=== PATIENT | male | born 1960 | race Caucasian/White ===

== ENCOUNTER → 2018-05-24 | Outpatient (CLI) | payer OTHER ==
[~2018-05-24] MED LIST: AMOXICILLIN 50500 M1 PO; AVELOX 400 MG400 MG PO; CEFTIN 250 MG250 MG PO; CIPRO500 M1 PO; CIPRO500 MG PO; DOXYCYCLINE 10100 MG PO; FLAGYL500 M1 PO; FLAGYL500 MG PO; HYDROCODONE-AP1 EAC6 PO; KEPPRA 500 MG500 M1 PO; LEVAQUIN 250 M250 MG PO; LISINOPRIL5 MG PO; OMEPRAZOLE20 MG PO; ROBITUSSIN15 MG/5 ML PO; VITAMIN D1000 UNI1 PO; ZOFRAN ODT4 MG PO
== END ==
LOC: M.MRI 16:21
DX: S83.231A Complex tear of medial meniscus, current injury, right knee, initial encounter (principal); M22.41 Chondromalacia patellae, right knee; X58.XXXA Exposure to other specified factors, initial encounter; Y93.89 Activity, other specified; Y92.89 Other specified places as the place of occurrence of the external cause; Y99.8 Other external cause status

== ENCOUNTER → 2018-06-22 | Day surgery (SDC) | payer OTHER ==
[~2018-06-22] MED LIST changes: +NORCO 5-325 TA1 EACH PO; +PROTONIX40 M1 PO
--- NOTE | ~2018-06-22 | OP ---
[address] [address] OPERATIVE REPORT Name: MAIDA FARIA Room: [facility]#: [id number] Admission: 06/22/18 Attend Phys: Javier Gibson DO Discharge: Date of : 64 Report #: [id number] THIS REPORT FOR: //name// CC: Javier Dozier DICTATED BY: Joe Emmanuel DO DATE OF SERVICE: 06/22/2018 PREOPERATIVE DIAGNOSIS: Right knee medial meniscus tear. POSTOPERATIVE DIAGNOSES: 1. Right knee medial meniscus tear. 2. Grade 3 chondromalacia medial femoral condyle. 3. Medial plica. PROCEDURE: Right knee arthroscopy with partial medial meniscectomy, chondroplasty medial compartment and excision of medial plica. SURGEON: Javier Gibson DO. ASSISTANTS: 1. Joe Emmanuel DO 2. Shivam Carbajal DO ANESTHESIA: General. ANTIBIOTICS: 1 gram Ancef IV preoperatively. ESTIMATED BLOOD LOSS: 5 mL. COMPLICATIONS: None. SPECIMENS: None. CONDITION: The patient is stable to PACU. INDICATIONS FOR PROCEDURE: This is a pleasant 58-year-old male who has been seen and examined in the outpatient orthopedic clinic. He has been complaining of right knee pain for quite some time now. He has been treated conservatively with activity modification as well as intra-articular steroid injections. Despite these treatments, he continues to have right knee pain. He did undergo an MRI, which demonstrated findings consistent with a tear of the medial meniscus of the right knee. Right knee arthroscopy was recommended for the patient and they wished to proceed with this. [address] [address] OPERATIVE REPORT Name: MAIDA FARIA Room: [facility]#: [id number] Admission: 06/22/18 Attend Phys: Javier Gibson DO Discharge: Date of : 64 Report #: [id number] DESCRIPTION OF PROCEDURE: The patient was seen and examined in the preoperative holding area. The correct operative extremity was marked by the operating surgeon. Written consent was contained for the procedure. The patient was then transferred to the operating room and placed supine on the operating room table. He was given the benefit of general anesthesia. The right lower extremity was placed in the arthroscopic leg calle. The left lower extremity was well padded. The right lower extremity was then prepped and draped in the usual sterile fashion. Timeout was performed to verify the correct patient, procedure and operative extremity and all were in agreement. The procedure began by using a 15 blade scalpel to establish the standard anterolateral arthroscopic portal. Diagnostic arthroscopy was then performed. There was noted to be grade 2 and 3 chondromalacia of the patellofemoral compartment. There was also noted to be a medial plica band impinging on the medial femoral condyle. Medial compartment demonstrated grade 3 chondromalacia as well as a complex tear of the medial meniscus involving the root and extending into the body of the medial meniscus. The notch was found to be without pathology. The lateral compartment was also found to be without any pathology. Next, using arthroscopic guidance, the medial portal was established. Attention was turned to the medial meniscus where partial medial meniscectomy was performed using combination of arthroscopic biters and arthroscopic beth. This was confirmed to be debrided back to stable edges with probing. The attention was then turned to the medial plica which was excised using the arthroscopic shaver. The knee was then thoroughly irrigated and drained. This was injected with 20 mL of 0.25% Marcaine plain as well as 40 mg of Kenalog. The patient tolerated the procedure well. The incision was then closed with 3-0 nylon sutures in a simple interrupted fashion. A sterile dressing of Xeroform, 4 x 4's, Webril and Eliezer wrap was applied to the right lower extremity. The patient was awakened from anesthesia and transferred to the PACU in stable condition. He tolerated the procedure well. There were no complications. By: [id number] DO Arthur /nt
[2018-06-22 10:31] LABS: HEMATOCRIT 49.7 % (42.0-52.0); HEMOGLOBIN 16.8 gm/dL (14.0-18.0); MCH 27.8 pg (26.0-34.0); MCHC 33.8 g/dL (28.0-37.0); MCV 82.1 fL (80.0-100.0); MPV 7.1 fl. (7.2-11.1); RBC 6.05 mil/uL (4.50-6.00); RDW-CV 13.1 % (10.5-14.5); WBC 10.4 thou/uL (4.0-11.0)
[2018-06-22 10:36] LABS: CREATININE 1.2 mg/dL (0.6-1.3); POTASSIUM 4.1 mmol/L (3.5-5.1)
[2018-06-22 10:41] LABS: ALBUMIN 3.7 g/dL (3.4-5.0); TOTAL BILIRUBIN 0.6 mg/dL (<0.1-1.0); TOTAL PROTEIN 7.7 g/dL (6.4-8.2)
--- NOTE | 2018-06-22 16:51 | EKG ---
[place] [address] ELECTROCARDIOGRAM REPORT Name: MAIDA FARIA Room: [facility]#: [id number] Admission: 06/22/18 Attend Phys: Javier Gibson DO Discharge: Date of : 64 Report #: [id number] THIS REPORT FOR: //name// [facility] Test Date: 2018-06-22 Test Time: 10:24:03 Pat Name: MAIDA FARIA Department: Room: Gender: M Police Detective: : 1960 Requested By: Javier Gibson Order Number: [id number] Reading MD: Sagar Galan Measurements Intervals [place] Rate: 65 P: 43 NE: 155 QRS: 26 QRSD: 105 T: 51 QT: 413 QTc: 430 Interpretive Statements Sinus rhythm Compared to ECG 09/19/2016 07:39:59 No significant changes Electronically Signed On 06-22-2018 16:51:30 [employer] by Sagar Galan [email or web address] <ELECTRONICALLY SIGNED> By: Sagar Galan MD, [facility] 06/22/18 1651 1024 1024 Sagar Galan MD, FACC /EPI
== END | disposition home or self-care (01) ==
LOC: M.SUR 10:02
PROVIDERS: Orthopaedic Surgery
DX: S83.231A Complex tear of medial meniscus, current injury, right knee, initial encounter (principal); M94.261 Chondromalacia, right knee; M67.51 Plica syndrome, right knee; Z98.890 Other specified postprocedural states; Z91.041 Radiographic dye allergy status; Z79.899 Other long term (current) drug therapy; X58.XXXA Exposure to other specified factors, initial encounter; Y93.89 Activity, other specified; Y92.89 Other specified places as the place of occurrence of the external cause; Y99.8 Other external cause status

== ENCOUNTER → 2018-08-15 | Outpatient (CLI) | payer OTHER ==
[2018-08-15 16:13] LABS: BF RBC <1000 /mm3
[2018-08-15 16:47] LABS: TOTAL CELL COUNT 728 /mm3
[2018-08-15 17:10] LABS: TOTAL VOLUME 35 ml
[2018-08-15 17:11] LABS: CLARITY SLIGHTLY HAZY
[2018-08-15 18:07] LABS: BF LYMPHOCYTES 45 %; BF MONOCYTES 50 %; BF POLYS 5 %; BF TISSUE 14 /100 WBC; SOURCE SYNOVIAL FLUID
[2018-08-16 11:09] LABS: BODY FLUID PROTEIN 3.8 g/dL (())
[2018-08-17 10:04] LABS: SOURCE SYNOVIAL
== END ==
LOC: M.ULTRA 15:40
PROVIDERS: Orthopaedic Surgery
DX: M25.461 Effusion, right knee (principal)

== ENCOUNTER 2019-03-04 06:49 | Emergency (ER) | payer OTHER ==
[~2019-03-04] VITALS: Ht 188 cm; Wt 128.8 kg
[2019-03-04] MEDS ORDERED: CYCLOBENZAPRINE5 MG PO (07:10)
[2019-03-04] MEDS ORDERED: LIPITOR 20 MG T20 M1 PO (07:10)
[2019-03-04 07:44] LABS: URINE BILIRUBIN NEGATIVE (Negative); URINE BLOOD TRACE (Negative); URINE CLARITY CLEAR; URINE COLOR YELLOW; URINE GLUCOSE-RANDOM NEGATIVE (Negative); URINE KETONES NEGATIVE (Negative); URINE LEUKOCYTES-REFLEX NEGATIVE (Negative); URINE NITRITE-REFLEX NEGATIVE (Negative); URINE PROTEIN TRACE (Negative); URINE SPECIFIC GRAVITY 1.025 (1.005-1.030); URINE UROBILINOGEN 0.2 E.U./dl (0.2-1.0)
[2019-03-04 07:52] LABS: ABSOLUTE EOSINOPHILS 0.2 thou/uL (0.0-0.7); ABSOLUTE LYMPHOCYTES 2.6 thou/uL (0.8-5.3); ABSOLUTE MONOCYTES 1.1 thou/uL (0.0-1.2); ABSOLUTE NEUTROPHILS 7.1 thou/uL (1.6-8.1); BASOPHILS 0.1 %; EOSINOPHILS 2.2 %; HEMATOCRIT 47.9 % (42.0-52.0); HEMOGLOBIN 16.4 gm/dL (14.0-18.0); LYMPHOCYTES 23.7 %; MCH 27.6 pg (26.0-34.0); MCHC 34.2 g/dL (28.0-37.0); MCV 80.7 fL (80.0-100.0); MONOCYTES 9.5 %; NUCLEATED RBCS 0 /100WBC; PLATELET COUNT* 306 thou/uL (150-400); POLYS 64.5 %; RBC 5.94 mil/uL (4.50-6.00); RDW-CV 13.6 % (10.5-14.5)
[2019-03-04 08:00] LABS: CREATININE 1.2 mg/dL (0.6-1.3); POTASSIUM 4.2 mmol/L (3.5-5.1)
[2019-03-04 08:05] LABS: ALBUMIN 3.5 g/dL (3.4-5.0); TOTAL BILIRUBIN 0.3 mg/dL (<0.1-1.0); TOTAL PROTEIN 7.8 g/dL (6.4-8.2)
[2019-03-04 17:17] VITALS: BP 124/82
[2019-03-04] MEDS ORDERED: BENTYL 20 MG TA20 M1 PO (17:17)
[2019-03-04] MEDS ORDERED: CARAFATE 1 GM TA1 GM PO (17:17)
== END 2019-03-04 17:17 | disposition home or self-care (01) ==
LOC: M.ERS 06:49
PROVIDERS: Personal Emergency Response Attendant
DX: N28.1 Cyst of kidney, acquired (principal); G47.30 Sleep apnea, unspecified; I10 Essential (primary) hypertension; K21.9 Gastro-esophageal reflux disease without esophagitis; Z90.49 Acquired absence of other specified parts of digestive tract; Z91.041 Radiographic dye allergy status

== ENCOUNTER → 2020-03-25 | Outpatient (CLI) | payer BC ==
[~2020-03-25] MED LIST changes: +BENTYL 20 MG TA20 M1 PO; +CARAFATE 1 GM TA1 GM PO; +CYCLOBENZAPRINE5 MG PO; +LIPITOR 20 MG T20 M1 PO
== END ==
LOC: M.MRI 17:11
PROVIDERS: ATTEND Orthopaedic Surgery
DX: M51.15 Intervertebral disc disorders with radiculopathy, thoracolumbar region (principal); M51.17 Intervertebral disc disorders with radiculopathy, lumbosacral region